=== PATIENT | male | born 1955 | race Caucasian/White ===

== ENCOUNTER 2019-01-10 12:44 | Outpatient (CLI) | payer OTHER, MEDICARE ==
[2019-01-10] MEDS ORDERED: LIDOCAINE-MPF 1%, 5ML ONE (13:00)
== END 2019-01-10 23:59 | disposition home or self-care (01) ==
LOC: RAD 12:44
PROVIDERS: ATTEND Pathology Hematology
DX: R18.8 Other ascites (principal); C18.2 Malignant neoplasm of ascending colon
CPT/HCPCS: 49083; 88112; 88305; 88341; 88342